=== PATIENT | female | born 1935 | race Caucasian/White ===

== ENCOUNTER → 2017-05-16 | Outpatient (CLI) | payer MEDICARE ==
[~2017-05-16] MED LIST: B-12 100 MCG; CALTRATE-600 W600 MG PO; CRESTOR5 MG PO; FOSAMAX PO; PROLIA60 MG/ML SC; ULTRAM 50MG TAB50 MG PO; VITAMIN D1000 IU PO
== END ==
LOC: MC.RAD 07:35
DX: Z12.31 Encounter for screening mammogram for malignant neoplasm of breast (principal)

== ENCOUNTER → 2018-05-30 | Outpatient (CLI) | payer MEDICARE | LOC: MC.RAD 07:20 | DX: Z12.31 Encounter for screening mammogram for malignant neoplasm of breast (principal) ==

== ENCOUNTER → 2020-05-10 | Outpatient (CLI) | payer MEDICARE | LOC: MC.RAD 11:26 | DX: Z12.31 Encounter for screening mammogram for malignant neoplasm of breast (principal) ==

== ENCOUNTER → 2021-06-20 | Outpatient (CLI) | payer MEDICARE | LOC: MC.RAD 07:30 | DX: Z12.31 Encounter for screening mammogram for malignant neoplasm of breast (principal) ==

== ENCOUNTER 2022-11-12 18:21 | Observation (INO) | payer MEDICARE ==
[~2022-11-12] VITALS: Ht 157.5 cm; Wt 57.7 kg
[~2022-11-12 18:21] MED LIST changes: -B-12 100 MCG; +SENNA-LAX8.6 MG PO; +VITAMIN B12 781 TAB PO
[2022-11-12 19:28] LABS: BASO % 0.4 % (0.0-2.0); EOS # 0.1 K/mm3 (0.0-0.7); EOS % 0.9 % (0.0-4.0); GRAN # 5.1 K/mm3 (1.4-6.5); GRAN % 74.3 % (42.2-75.2); HEMATOCRIT 40.8 % (37.0-47.0); HEMOGLOBIN 13.8 g/dl (12.5-16.0); LYMPH # 1.1 K/mm3 (1.2-3.4); LYMPH % 16.2 % (20.0-51.0); MEAN CELL VOLUME 89 fl (80.0-100.0); MEAN CORPUSCULAR HEMOGLOBIN 30 pg (27-31); MEAN CORPUSCULAR HGB CONC 34 g/dl (33.0-37.0); MEAN PLATELET VOLUME 10.9 fl (7.4-10.4); MONO # 0.5 K/mm3 (0.1-0.6); MONO % 7.9 % (1.7-9.3); PLATELET COUNT 169 K/mm3 (130-400); RED BLOOD COUNT 4.61 M/mm3 (4.10-5.30); REDCELL DISTRIBUTION WIDTH-CV 15.1 % (11.5-14.5)
[2022-11-12 19:43] LABS: ALBUMIN 3.7 gm/dL (3.4-4.8); BILIRUBIN,TOTAL 0.7 mg/dL (0.2-1.2); CALCIUM 9.5 mg/dL (8.4-10.2); CREATININE, serum 0.91 mg/dL (0.57-1.11); POTASSIUM 4.7 mmol/L (3.5-4.5); TOTAL PROTEIN 6.9 gm/dL (6.2-8.1)
[2022-11-12] MEDS ORDERED: TIMOLOL MALEATE5 M1 OP (23:32)
[2022-11-12] MEDS ORDERED: XALATAN EYE DROPS OD (23:32)
[2022-11-13] VITALS (7 sets, daily range): BP systolic 111–154; BP diastolic 66–81; PULSE 58–93; TEMP 97.5–98.9
--- NOTE | 2022-11-13 02:20 | NUR ---
RN ATTEMPTING TO GIVE PATIENT IV PAIN MEDICATION IN RIGHT AC IV. PTS IV WENT BACK IV PAIN MEDICATION WASTED NONE REACHED THE PATIENT NEW PULLED. NEW KIM PLACED IN L AC AND PAIN MEDICATION ADMINISTERED PER MAR
[2022-11-13 05:55] LABS: BASO % 0.3 % (0.0-2.0); GRAN # 7.1 K/mm3 (1.4-6.5); GRAN % 77.7 % (42.2-75.2); HEMOGLOBIN 12.4 g/dl (12.5-16.0); LYMPH # 1.2 K/mm3 (1.2-3.4); LYMPH % 13.3 % (20.0-51.0); MEAN CELL VOLUME 89 fl (80.0-100.0); MEAN CORPUSCULAR HEMOGLOBIN 30 pg (27-31); MEAN CORPUSCULAR HGB CONC 34 g/dl (33.0-37.0); MONO # 0.8 K/mm3 (0.1-0.6); MONO % 8.3 % (1.7-9.3); PLATELET COUNT 153 K/mm3 (130-400); RED BLOOD COUNT 4.15 M/mm3 (4.10-5.30); REDCELL DISTRIBUTION WIDTH-CV 15.3 % (11.5-14.5)
[2022-11-13 06:01] LABS: CALCIUM 8.7 mg/dL (8.4-10.2); CREATININE, serum 0.85 mg/dL (0.57-1.11); MAGNESIUM 1.7 mg/dL (1.6-2.6); POTASSIUM 4.1 mmol/L (3.5-4.5)
--- NOTE | 2022-11-13 08:00 | NUR ---
Pt doing ok this morning. Pt is sleeping with eyes closed, even non labored breathing. Pt does wake easily. Using communication board as needed. Pt pain appears to be ok at this time
--- NOTE | 2022-11-13 10:00 | NUR ---
Pt continues to do okay. She is sleepy and does have to be woke up each time I go in to her room. Pt shrugs shoulders when I ask about her pain then signals that she does not need any pain medication. Call light within reach
--- NOTE | 2022-11-13 12:07 | NUR ---
Pt daughter recently arrived. New IV started in right forearm as the IV in right ac was not flushing. Pt daughter helping with signing. Pt is still drowsy, but is a little more awake now than she has been. After IV was placed, PRN pain and nausea medication given. Pt daughter was concerned about not using signing communication with her. Informed her pt has been sleeping most of the morning and is only awake a short time during assessment. Informed her that physician was waiting for her to arrive before rounding. Pt getting up to the restroom with standby assist. She did not tolerate the clear liquid breakfast, gave fresh ice water and left her gatorade
[2022-11-14 03:42] VITALS: BP 135/60; PULSE 89; TEMP 98.8
[2022-11-14 08:00] VITALS: BP 129/58; PULSE 84; TEMP 98.3
--- NOTE | 2022-11-14 08:30 | NUR ---
Assisted pt to the restroom. She did well as stand by assist/independent. Pt having some complaints of feeling nausated and is refusing the clear liquid breakfast at this time. Linens changed, refusing shower/bath at this time
--- NOTE | 2022-11-14 09:15 | NUR ---
Pt now reporting that her pain is much better. She also has had some broth and has tolerated with no nausea or vomiting. New orders receive, daughter is present in the room during physician rounding
--- NOTE | 2022-11-14 11:34 | NUR ---
LAte Entry from 11-13-22 Metal [employer]er contacted PAtient's daughter, Shyann P: [phone] to conduct CAre Managment Assessment and discuss discharge planning as Patient is deaf. Patient lives in [place], [place] and is established with PCP Dr. Larsen, covered by medicare [facility] for insurance. PAtient is independent with ADL/IADLs prior to admission and did not use O2 or home health services prior to admission. Patient intends to discahrge home tomorrow. SW will follow-up with Patient to address Advanced Directives.
[2022-11-14 11:36] VITALS: BP 122/63; PULSE 88; TEMP 98.4
[2022-11-14 16:00] VITALS: BP 126/65; PULSE 82; TEMP 98.2
--- NOTE | 2022-11-14 16:57 | NUR ---
Shift assessment is done this morning. Patient is deaf and uses sign language. This nurse used sign language to ask her pain and she communicated that it is improved and tolerated level. Hospitalist met her and told that if she tolerates food, she can go home. Patient ate 10% of lunch and said she is not hungry. We used oval or circular glass cutter to better communicate about her pain, meal, and other concern. This nurse assist her to go bathroom at 1710 and she didn't have any trouble voiding or ambulating. She said she doesn't have pain at this time and she still doesn't feel hungry. Discharge is ordered and waiting for her daughter to come at this time. Once her daughter is here, patient is to discharge with her daughter. this time.
--- NOTE | 2022-11-14 17:45 | NUR ---
Patient is discharged to home with her daughter. IV is removed. Discharge instruction is reviewed with patient and her daughter. Education provided and all the questions has been answered. Patient is escorted by staff to the vehicle via wheel chair. Her daughter is with her and driving home.
== END 2022-11-14 17:40 | disposition home or self-care (01) ==
LOC: COL.ER 18:21 → MEDICAL 23:12
PROVIDERS: Emergency Medicine; Student in an Organized Health Care Education/Training Program; ADMIT Student in an Organized Health Care Education/Training Program
DX: R10.9 Unspecified abdominal pain (principal); R60.1 Generalized edema; R91.8 Other nonspecific abnormal finding of lung field; E78.5 Hyperlipidemia, unspecified; Z87.19 Personal history of other diseases of the digestive system; Z98.0 Intestinal bypass and anastomosis status; Z90.49 Acquired absence of other specified parts of digestive tract
CPT/HCPCS: G0378; J1170; J1790; J2405; J3010; J7030; J7120; Q9967

== ENCOUNTER → 2024-01-07 | Outpatient (CLI) | payer MEDICARE ==
[~2024-01-07] MED LIST changes: +TIMOLOL MALEATE5 M1 OP; +XALATAN EYE DROPS OD
== END ==
LOC: MC.RAD 07:17
DX: Z12.31 Encounter for screening mammogram for malignant neoplasm of breast (principal)